=== PATIENT | female | born 1950 | race Caucasian/White ===

== ENCOUNTER 2022-01-12 15:16 | Emergency (ER) | payer MEDICARE, SELFPAY ==
--- NOTE | ~2022-01-12 | XR_ITS ---
EXAMINATION: XR CHEST CLINICAL INFORMATION: Intoxicated. COMPARISON: None TECHNIQUE: 2 views of the chest were obtained. FINDINGS: No significant abnormality is noted involving the heart, lungs, mediastinum, bony thorax or soft tissues. XR/XR chest 2V IMPRESSION: No acute cardiopulmonary process.
[2022-01-12 15:27] VITALS: BP 107/67; BP 158/78; PULSE 103; PULSE 128; RESP 16; TEMP 37.1; O2SAT 96; O2SAT 98; BMI 28.3
--- NOTE | 2022-01-12 15:34 | ECG_ITS ---
Test Reason : Intoxicated Blood Pressure : / mmHG Vent. Rate : 096 BPM Atrial Rate : 096 BPM P-R Int : 164 ms QRS Dur : 086 ms QT Int : 368 ms P-R-T Axes : 054 012 026 degrees QTc Int : 464 ms Normal sinus rhythm Low voltage QRS Cannot rule out Anterior infarct , age undetermined Abnormal ECG No previous ECGs available Referred By: Rajni Taylor Electronically Signed By:DAMIAN LI
[2022-01-12] MEDS: chlordiazePOXIDE HCl 25 MG CAPSULE PO ×2 (15:51→22:58)
--- NOTE | 2022-01-12 16:14 | ED.ALCOHOL ---
HPI - Alcohol General Chief Complaint: ETOH/Substance Use <CHAPARRITA Hair - Last Filed: 01/12/22 17:43> Stated Complaint: detox <CHAPARRITA Hair - Last Filed: 01/12/22 17:43> Time Seen by Provider: 01/12/22 15:19 <CHAPARRITA Hair - Last Filed: 01/12/22 17:43> Source: patient and EMS <CHAPARRITA Hair - Last Filed: 01/12/22 17:43> Mode of arrival: EMS <CHAPARRITA Hair - Last Filed: 01/12/22 17:43> Limitations: no limitations <CHAPARRITA Hair - Last Filed: 01/12/22 17:43> History of Present Illness HPI narrative: 71-year-old female who denies any medical history reports she has not seen a primary care provider in approximately 4 years who is presenting to the ED via EMS with complaints of alcohol dependent requesting detox. 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 Therefore she has been very stressed/anxious and depressed and she has been drinking moderate amount of alcohol she reports approximately 4-8 oz of wine every 4 hours. She reports if she does not do this she starts to become very sweaty and her heart feels like it starts racing and she is getting nervous about this. She reports that she last drank approximately 14:00 prior to arrival. She denies any symptoms at this time including dizziness, change in vision, headaches, nausea/vomiting, jaw pain, chest pain, shortness of breath, dyspnea exertion, orthopnea, palpitations, paresthesias, abdominal pain, diarrhea, constipation, black or bloody stools, rashes, lower extremity edema or calf tenderness, dysuria, hematuria, abnormal vaginal discharge, SI, HI, auditory visualizations thoughts of self-injury, drug use or any other symptoms complaints or concerns at this time. <CHAPARRITA Hair - Last Filed: 01/12/22 17:43> MD complaint: alcohol intoxication and desires rehab <CHAPARRITA Hair Last Filed: 01/12/22 17:43> Last drink: Hours (ago) (14pm police [employer] ) <CHAPARRITA Hair Last Filed: 01/12/22 17:43> Chronic alcohol use: No <CHAPARRITA Hair Last Filed: 01/12/22 17:43> Previous visits for alcohol intoxication: No <CHAPARRITA Hair Last Filed: 01/12/22 17:43> Recent trauma: No <CHAPARRITA Hair Last Filed: 01/12/22 17:43> Associated symptoms: denies other symptoms <CHAPARRITA Hair Last Filed: 01/12/22 17:43> Treatments prior to arrival: none <CHAPARRITA Hair Last Filed: 01/12/22 17:43> Related Data Home Medications: Previous Rx's Medication Instructions Recorded chlordiazepoxide HCl 25 mg capsule 50 mg PO Q4H PRN alcohol 01/12/22 withdrawal 6 doses #6 caps <CHAPARRITA Hair Last Filed: 01/12/22 17:43> Allergies/Adverse Reactions: Allergies Allergy/AdvReac Type Severity Reaction Status Date / Time No Known Allergies Allergy Unverified 02/09/20 18:49 <CHAPARRITA Hair Last Filed: 01/12/22 17:43> Review of Systems Review of Systems: Constitutional : No Fever, No Chills ENT/Mouth : No Ear Pain, No Nasal Congestion, No sore throat Eyes: No Eye Pain, No Swelling, No Redness Cardiovascular : No Chest Pain, No SOB Respiratory : No Cough, No Sputum, No Dyspnea Gastrointestinal : No ingestions, No Nausea, No Vomiting, No Diarrhea, No Hematochezia, No Melena Genitourinary : No Dysuria, No Urinary Frequency, No Hematuria Musculoskeletal : No Myalgias Skin : No Skin Lesions, No rash Neuro : No Weakness, No Numbness, No Paresthesias, No Dizziness, No Headache Psych : + Anxiety, + Depression, No SI, No thoughts of self injury, No HI, No AVH, No Delusions Heme/Lymph: No Lymphadenopathy Endocrine : No Polyuria, No Polydipsia <CHAPARRITA Hair Last Filed: 01/12/22 17:43> Yes all other systems are reviewed and are negative <CHAPARRITA Hair - Last Filed: 01/12/22 17:43> FOR[facility]LY [facility] Past Medical History Attestation statement: The following information was validated with the patient. <CHAPARRITA Hair - Last Filed: 01/12/22 17:43> Source: old records reviewed and nursing notes reviewed <CHAPARRITA Hair - Last Filed: 01/12/22 17:43> Social History Social History: Social History Advance Directives: No Advance Directives Information Provided: No <CHAPARRITA Hair - Last Filed: 01/12/22 17:43> Physical Exam ED Vital Signs: Vital Signs - 24 hr 01/12/22 15:27 01/12/22 20:40 Temperature 98.7 F Pulse Rate 103 H 83 Respiratory Rate 16 18 Blood Pressure 107/67 115/55 L Pulse Oximetry 96 98 Oxygen Delivery Method Room Air BMI result Body Mass Index 28.3 Vital signs reviewed patient's blood pressure 107/67 within normal limits. Pulse 103. Respirations 16. Temperature 98.7 degrees. Oxygen saturation 96% on room air. <CHAPARRITA Hair - Last Filed: 01/12/22 17:43> Vital Signs - 24 hr 01/12/22 15:27 01/12/22 20:40 Temperature 98.7 F Pulse Rate 103 H 83 Respiratory Rate 16 18 Blood Pressure 107/67 115/55 L Pulse Oximetry 96 98 Oxygen Delivery Method Room Air BMI result Body Mass Index 28.3 <CHAPARRITA Tobin - Last Filed: 01/12/22 23:51> Appearance: Alert. Oriented X3. No acute distress. Intoxicated with EtOH on odor of breath. Head: Normal external exam. Normocephalic. Atraumatic. Eyes: PERRLA. EOMI. Conjunctiva and sclera normal. Eyelids normal. ENT: EAC normal. TM's Normal. Pharynx normal. Uvula midline. Moist mucous membranes. No trismus noted. No drooling noted. No muffled voice noted. Neck: Normal inspection. Neck supple. FROM. No adenopathy. Thyroid Normal. No meningeal signs. No neck mass noted. CVS: Normal heart rate and rhythm. Heart sound normal. No murmurs noted. Pulses normal throughout. Respiratory: No respiratory distress. Painless inspiration. Breath sounds normal. No wheezes/rales/rhonchi noted. Chest nontender. No accessory muscle usage noted or decreased air movement noted. Abdomen: Soft and nontender. Bowel sounds normal in all 4 quadrants. No distention noted. No organomegaly noted. No visible injury noted. Back: No CVA tenderness. Full range of motion noted. Skin: Skin warm and dry. Normal skin color. Normal skin turgor. No rashes/lesions/lacerations noted. Extremities: No lower extremity edema. Extremities exhibit normal range of motion. Extremities nontender. Neuro: Oriented X 3. No motor deficit. No sensory deficit. Reflexes normal. CN's II-XII intact bilaterally? Psych: Appearance grossly normal, well-kept, mental status normal, speech and movement normal, speech clear, patient appears very sad and anxious along with depressed. Is cooperative. Normal thought process. Normal thought content. Normal good insight. Judgment good. <CHAPARRITA Hair - Last Filed: 01/12/22 17:43> Course Course Course Narrative: 15:40pm - 71-year-old female who denies any medical history reports she has not seen a primary care provider in approximately 4 years who is presenting to the ED via EMS with complaints of alcohol dependent requesting detox. 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 Therefore she has been very stressed/anxious and depressed and she has been drinking moderate amount of alcohol she reports approximately 4-8 oz of wine every 4 hours. She reports if she does not do this she starts to become very sweaty and her heart feels like it starts racing and she is getting nervous about this. She reports that she last drank approximately 14:00 prior to arrival. Plan: Labs including ETOH level, drugs of abuse screen, COVID swab, EKG, chest x-ray, provide Librium 25 mg every 6-8 hours and re-evaluate. <CHAPARRITA Hair - Last Filed: 01/12/22 17:43> Reevaluation(s) Reevaluation #1: - labs return patient mild anemia with an H&H of 11.7/33.8. Sodium 130. BUN 5. AST 35. Troponin 4.2 therefore will repeat. UA revealed a trace of leukocytes therefore will start on antibiotics for UTI. Patient's ethanol level is at 233. Patient negative for COVID - will provide a L of fluids for the patient's hyponatremia of 130. Will repeat the patient's troponin. Re-evaluate. <CHAPARRITA Hair - Last Filed: 01/12/22 17:43> Time: 16:53 <CHAPARRITA Hair - Last Filed: 01/12/22 17:43> Reevaluation #2: Second troponin negative. Patient spoke with Sita from the care team, she does not want to go to detox. She was given 1st dose of Librium here and would like to go home with Librium. She reports she will not drink alcohol. Her son is at the bedside and will home monitor and support. At this time she is stable for discharge home. <CHAPARRITA Tobin - Last Filed: 01/12/22 23:51> MDM - Alcohol Medical Records Attestation: I reviewed the patient's medical records. <CHAPARRITA Hair - Last Filed: 01/12/22 17:43> Lab Data Attestation: I reviewed the patient's lab results. <CHAPARRITA Hair - Last Filed: 01/12/22 17:43> Result diagrams: : 01/12/22 16:12 01/12/22 16:12 <CHAPARRITA Hair - Last Filed: 01/12/22 17:43> Labs: Lab Results 01/12/22 01/12/22 01/12/22 Range/Units 16:12 16:12 16:12 WBC 5.6 (4.8-10.8) X10*3/uL RBC 3.73 L (4.20-5.50) X10*6/uL Hgb 11.7 L (12.0-16.0) g/dl Hct 33.8 L (37.0-47.0) % MCV 90.6 (80.0-98.0) fL MCH 31.4 (27.0-33.0) pg MCHC 34.6 (31.0-35.0) g/dl RDW 13.9 (11.0-16.0) % Plt Count 196 (160-400) X10*3/uL MPV 8.9 L (9.4-12.3) fL Immature Gran % (Auto) 0.5 H (0.0-0.4) % Neut % (Auto) 56.0 (45-73) % Lymph % (Auto) 35.8 (20-40) % [place] % (Auto) 5.9 (2-11) % Eos % (Auto) 1.1 (0-4) % Baso % (Auto) 0.7 (0-2) % Lymph # (Auto) 2.0 (1.2-4.9) X10*3/uL [place] # (Auto) 0.3 (0.1-1.2) X10*3/uL Eos # (Auto) 0.1 (0.0-0.4) X10*3/uL Baso # (Auto) 0.0 (0.0-0.2) X10*3/uL Abs Immat Gran (auto) 0.03 (0.00-0.03) X10*3/uL Absolute Neuts (auto) 3.1 (2.0-8.3) x10*3/uL Absolute Nucleated RBC 0.000 (0.0-0.012) X10*3/uL Nucleated RBC % (auto) 0.0 (0.0-0.2) /100WBC PT 11.4 (10.0-13.1) SEC INR 1.0 (0.9-1.1) Sodium 130 L (135-145) mmol/L Potassium 4.1 (3.3-5.1) mmol/L Chloride 91 L (96-108) mmol/L Carbon Dioxide 25 (22-29) mmol/L Anion Gap 18 (12-20) BUN 5 L (9-16) mg/dL Creatinine 0.67 (0.5-1.4) mg/dL Estim Creat Clear Calc 73.4 Estimated GFR > 60 Random Glucose 115 (60-115) mg/dL Calcium 8.7 (8.4-10.2) mg/dL Magnesium 1.8 (1.6-2.6) mg/dL Total Bilirubin 0.7 (0.0-1.0) mg/dL AST 35 H (5-31) U/L ALT 21 (0-31) U/L Alkaline Phosphatase 70 (39-117) U/L Troponin I High Sens (<3.5-17.0) ng/L Total Protein 6.3 L (6.5-8.0) g/dL Albumin 3.9 (3.5-5.0) g/dL Urine Color Urine Appearance Urine pH (5.0-8.0) Ur Specific [place] (1.005-1.025) Urine Protein (Neg-Trace) mg/dL Urine Glucose (UA) (Negative) mg/dL Urine Ketones (Negative) mg/dL Urine Blood (Negative) Urine Nitrite (Negative) Ur Leukocyte Esterase (Negative) Urine RBC (0-2) /HPF Urine WBC (0-5) /HPF Ur Squamous Epith Cells (0-2) /HPF Urine Bacteria (None Seen) Hyaline Casts (0-2) /LPF Urine Opiates Screen (Not Detect) Urine Fentanyl Screen (Not Detect) Ur Barbiturates Screen (Not Detect) Ur Phencyclidine Scrn (Not Detect) Ur Amphetamines Screen (Not Detect) U Benzodiazepines Scrn (Not Detect) Urine Cocaine Screen (Not Detect) U Marijuana (THC) Screen (Not Detect) Ethyl Alcohol 223 mg/dL COVID-19 (ARNOL) (Negative) COVID-19 Clin Com 01/12/22 01/12/22 01/12/22 Range/Units 16:12 16:12 16:39 WBC (4.8-10.8) X10*3/uL RBC (4.20-5.50) X10*6/uL Hgb (12.0-16.0) g/dl Hct (37.0-47.0) % MCV (80.0-98.0) fL MCH (27.0-33.0) pg MCHC (31.0-35.0) g/dl RDW (11.0-16.0) % Plt Count (160-400) X10*3/uL MPV (9.4-12.3) fL Immature Gran % (Auto) (0.0-0.4) % Neut % (Auto) (45-73) % Lymph % (Auto) (20-40) % [place] % (Auto) (2-11) % Eos % (Auto) (0-4) % Baso % (Auto) (0-2) % Lymph # (Auto) (1.2-4.9) X10*3/uL [place] # (Auto) (0.1-1.2) X10*3/uL Eos # (Auto) (0.0-0.4) X10*3/uL Baso # (Auto) (0.0-0.2) X10*3/uL Abs Immat Gran (auto) (0.00-0.03) X10*3/uL Absolute Neuts (auto) (2.0-8.3) x10*3/uL Absolute Nucleated RBC (0.0-0.012) X10*3/uL Nucleated RBC % (auto) (0.0-0.2) /100WBC PT (10.0-13.1) SEC INR (0.9-1.1) Sodium (135-145) mmol/L Potassium (3.3-5.1) mmol/L Chloride (96-108) mmol/L Carbon Dioxide (22-29) mmol/L Anion Gap (12-20) BUN (9-16) mg/dL Creatinine (0.5-1.4) mg/dL Estim Creat Clear Calc Estimated GFR Random Glucose (60-115) mg/dL Calcium (8.4-10.2) mg/dL Magnesium (1.6-2.6) mg/dL Total Bilirubin (0.0-1.0) mg/dL AST (5-31) U/L ALT (0-31) U/L Alkaline Phosphatase (39-117) U/L Troponin I High Sens 4.2 (<3.5-17.0) ng/L Total Protein (6.5-8.0) g/dL Albumin (3.5-5.0) g/dL Urine Color Yellow Urine Appearance Clear Urine pH 7.5 (5.0-8.0) Ur Specific [place] 1.010 (1.005-1.025) Urine Protein Negative (Neg-Trace) mg/dL Urine Glucose (UA) Negative (Negative) mg/dL Urine Ketones Negative (Negative) mg/dL Urine Blood Negative (Negative) Urine Nitrite Negative (Negative) Ur Leukocyte Esterase Trace H (Negative) Urine RBC 0-2 (0-2) /HPF Urine WBC 0-5 (0-5) /HPF Ur Squamous Epith Cells 0-2 (0-2) /HPF Urine Bacteria None Seen (None Seen) Hyaline Casts 0-2 (0-2) /LPF Urine Opiates Screen (Not Detect) Urine Fentanyl Screen (Not Detect) Ur Barbiturates Screen (Not Detect) Ur Phencyclidine Scrn (Not Detect) Ur Amphetamines Screen (Not Detect) U Benzodiazepines Scrn (Not Detect) Urine Cocaine Screen (Not Detect) U Marijuana (THC) Screen (Not Detect) Ethyl Alcohol mg/dL COVID-19 (ARNOL) Negative (Negative) COVID-19 Clin Com See Note 01/12/22 01/12/22 Range/Units 16:39 20:57 WBC (4.8-10.8) X10*3/uL RBC (4.20-5.50) X10*6/uL Hgb (12.0-16.0) g/dl Hct (37.0-47.0) % MCV (80.0-98.0) fL MCH (27.0-33.0) pg MCHC (31.0-35.0) g/dl RDW (11.0-16.0) % Plt Count (160-400) X10*3/uL MPV (9.4-12.3) fL Immature Gran % (Auto) (0.0-0.4) % Neut % (Auto) (45-73) % Lymph % (Auto) (20-40) % [place] % (Auto) (2-11) % Eos % (Auto) (0-4) % Baso % (Auto) (0-2) % Lymph # (Auto) (1.2-4.9) X10*3/uL [place] # (Auto) (0.1-1.2) X10*3/uL Eos # (Auto) (0.0-0.4) X10*3/uL Baso # (Auto) (0.0-0.2) X10*3/uL Abs Immat Gran (auto) (0.00-0.03) X10*3/uL Absolute Neuts (auto) (2.0-8.3) x10*3/uL Absolute Nucleated RBC (0.0-0.012) X10*3/uL Nucleated RBC % (auto) (0.0-0.2) /100WBC PT (10.0-13.1) SEC INR (0.9-1.1) Sodium (135-145) mmol/L Potassium (3.3-5.1) mmol/L Chloride (96-108) mmol/L Carbon Dioxide (22-29) mmol/L Anion Gap (12-20) BUN (9-16) mg/dL Creatinine (0.5-1.4) mg/dL Estim Creat Clear Calc Estimated GFR Random Glucose (60-115) mg/dL Calcium (8.4-10.2) mg/dL Magnesium (1.6-2.6) mg/dL Total Bilirubin (0.0-1.0) mg/dL AST (5-31) U/L ALT (0-31) U/L Alkaline Phosphatase (39-117) U/L Troponin I High Sens < 3.5 (<3.5-17.0) ng/L Total Protein (6.5-8.0) g/dL Albumin (3.5-5.0) g/dL Urine Color Urine Appearance Urine pH (5.0-8.0) Ur Specific [place] (1.005-1.025) Urine Protein (Neg-Trace) mg/dL Urine Glucose (UA) (Negative) mg/dL Urine Ketones (Negative) mg/dL Urine Blood (Negative) Urine Nitrite (Negative) Ur Leukocyte Esterase (Negative) Urine RBC (0-2) /HPF Urine WBC (0-5) /HPF Ur Squamous Epith Cells (0-2) /HPF Urine Bacteria (None Seen) Hyaline Casts (0-2) /LPF Urine Opiates Screen Not Detected (Not Detect) Urine Fentanyl Screen Not Detected (Not Detect) Ur Barbiturates Screen Not Detected (Not Detect) Ur Phencyclidine Scrn Not Detected (Not Detect) Ur Amphetamines Screen Not Detected (Not Detect) U Benzodiazepines Scrn Not Detected (Not Detect) Urine Cocaine Screen Not Detected (Not Detect) U Marijuana (THC) Screen POSITIVE H (Not Detect) Ethyl Alcohol mg/dL COVID-19 (ARNOL) (Negative) COVID-19 Clin Com <CHAPARRITA Hair - Last Filed: 01/12/22 17:43> Lab Results 01/12/22 01/12/22 01/12/22 Range/Units 16:12 16:12 16:12 WBC 5.6 (4.8-10.8) X10*3/uL RBC 3.73 L (4.20-5.50) X10*6/uL Hgb 11.7 L (12.0-16.0) g/dl Hct 33.8 L (37.0-47.0) % MCV 90.6 (80.0-98.0) fL MCH 31.4 (27.0-33.0) pg MCHC 34.6 (31.0-35.0) g/dl RDW 13.9 (11.0-16.0) % Plt Count 196 (160-400) X10*3/uL MPV 8.9 L (9.4-12.3) fL Immature Gran % (Auto) 0.5 H (0.0-0.4) % Neut % (Auto) 56.0 (45-73) % Lymph % (Auto) 35.8 (20-40) % [place] % (Auto) 5.9 (2-11) % Eos % (Auto) 1.1 (0-4) % Baso % (Auto) 0.7 (0-2) % Lymph # (Auto) 2.0 (1.2-4.9) X10*3/uL [place] # (Auto) 0.3 (0.1-1.2) X10*3/uL Eos # (Auto) 0.1 (0.0-0.4) X10*3/uL Baso # (Auto) 0.0 (0.0-0.2) X10*3/uL Abs Immat Gran (auto) 0.03 (0.00-0.03) X10*3/uL Absolute Neuts (auto) 3.1 (2.0-8.3) x10*3/uL Absolute Nucleated RBC 0.000 (0.0-0.012) X10*3/uL Nucleated RBC % (auto) 0.0 (0.0-0.2) /100WBC PT 11.4 (10.0-13.1) SEC INR 1.0 (0.9-1.1) Sodium 130 L (135-145) mmol/L Potassium 4.1 (3.3-5.1) mmol/L Chloride 91 L (96-108) mmol/L Carbon Dioxide 25 (22-29) mmol/L Anion Gap 18 (12-20) BUN 5 L (9-16) mg/dL Creatinine 0.67 (0.5-1.4) mg/dL Estim Creat Clear Calc 73.4 Estimated GFR > 60 Random Glucose 115 (60-115) mg/dL Calcium 8.7 (8.4-10.2) mg/dL Magnesium 1.8 (1.6-2.6) mg/dL Total Bilirubin 0.7 (0.0-1.0) mg/dL AST 35 H (5-31) U/L ALT 21 (0-31) U/L Alkaline Phosphatase 70 (39-117) U/L Troponin I High Sens (<3.5-17.0) ng/L Total Protein 6.3 L (6.5-8.0) g/dL Albumin 3.9 (3.5-5.0) g/dL Urine Color Urine Appearance Urine pH (5.0-8.0) Ur Specific [place] (1.005-1.025) Urine Protein (Neg-Trace) mg/dL Urine Glucose (UA) (Negative) mg/dL Urine Ketones (Negative) mg/dL Urine Blood (Negative) Urine Nitrite (Negative) Ur Leukocyte Esterase (Negative) Urine RBC (0-2) /HPF Urine WBC (0-5) /HPF Ur Squamous Epith Cells (0-2) /HPF Urine Bacteria (None Seen) Hyaline Casts (0-2) /LPF Urine Opiates Screen (Not Detect) Urine Fentanyl Screen (Not Detect) Ur Barbiturates Screen (Not Detect) Ur Phencyclidine Scrn (Not Detect) Ur Amphetamines Screen (Not Detect) U Benzodiazepines Scrn (Not Detect) Urine Cocaine Screen (Not Detect) U Marijuana (THC) Screen (Not Detect) Ethyl Alcohol 223 mg/dL COVID-19 (ARNOL) (Negative) COVID-19 Clin Com 01/12/22 01/12/22 01/12/22 Range/Units 16:12 16:12 16:39 WBC (4.8-10.8) X10*3/uL RBC (4.20-5.50) X10*6/uL Hgb (12.0-16.0) g/dl Hct (37.0-47.0) % MCV (80.0-98.0) fL MCH (27.0-33.0) pg MCHC (31.0-35.0) g/dl RDW (11.0-16.0) % Plt Count (160-400) X10*3/uL MPV (9.4-12.3) fL Immature Gran % (Auto) (0.0-0.4) % Neut % (Auto) (45-73) % Lymph % (Auto) (20-40) % [place] % (Auto) (2-11) % Eos % (Auto) (0-4) % Baso % (Auto) (0-2) % Lymph # (Auto) (1.2-4.9) X10*3/uL [place] # (Auto) (0.1-1.2) X10*3/uL Eos # (Auto) (0.0-0.4) X10*3/uL Baso # (Auto) (0.0-0.2) X10*3/uL Abs Immat Gran (auto) (0.00-0.03) X10*3/uL Absolute Neuts (auto) (2.0-8.3) x10*3/uL Absolute Nucleated RBC (0.0-0.012) X10*3/uL Nucleated RBC % (auto) (0.0-0.2) /100WBC PT (10.0-13.1) SEC INR (0.9-1.1) Sodium (135-145) mmol/L Potassium (3.3-5.1) mmol/L Chloride (96-108) mmol/L Carbon Dioxide (22-29) mmol/L Anion Gap (12-20) BUN (9-16) mg/dL Creatinine (0.5-1.4) mg/dL Estim Creat Clear Calc Estimated GFR Random Glucose (60-115) mg/dL Calcium (8.4-10.2) mg/dL Magnesium (1.6-2.6) mg/dL Total Bilirubin (0.0-1.0) mg/dL AST (5-31) U/L ALT (0-31) U/L Alkaline Phosphatase (39-117) U/L Troponin I High Sens 4.2 (<3.5-17.0) ng/L Total Protein (6.5-8.0) g/dL Albumin (3.5-5.0) g/dL Urine Color Yellow Urine Appearance Clear Urine pH 7.5 (5.0-8.0) Ur Specific [place] 1.010 (1.005-1.025) Urine Protein Negative (Neg-Trace) mg/dL Urine Glucose (UA) Negative (Negative) mg/dL Urine Ketones Negative (Negative) mg/dL Urine Blood Negative (Negative) Urine Nitrite Negative (Negative) Ur Leukocyte Esterase Trace H (Negative) Urine RBC 0-2 (0-2) /HPF Urine WBC 0-5 (0-5) /HPF Ur Squamous Epith Cells 0-2 (0-2) /HPF Urine Bacteria None Seen (None Seen) Hyaline Casts 0-2 (0-2) /LPF Urine Opiates Screen (Not Detect) Urine Fentanyl Screen (Not Detect) Ur Barbiturates Screen (Not Detect) Ur Phencyclidine Scrn (Not Detect) Ur Amphetamines Screen (Not Detect) U Benzodiazepines Scrn (Not Detect) Urine Cocaine Screen (Not Detect) U Marijuana (THC) Screen (Not Detect) Ethyl Alcohol mg/dL COVID-19 (ARNOL) Negative (Negative) COVID-19 Clin Com See Note 01/12/22 01/12/22 Range/Units 16:39 20:57 WBC (4.8-10.8) X10*3/uL RBC (4.20-5.50) X10*6/uL Hgb (12.0-16.0) g/dl Hct (37.0-47.0) % MCV (80.0-98.0) fL MCH (27.0-33.0) pg MCHC (31.0-35.0) g/dl RDW (11.0-16.0) % Plt Count (160-400) X10*3/uL MPV (9.4-12.3) fL Immature Gran % (Auto) (0.0-0.4) % Neut % (Auto) (45-73) % Lymph % (Auto) (20-40) % [place] % (Auto) (2-11) % Eos % (Auto) (0-4) % Baso % (Auto) (0-2) % Lymph # (Auto) (1.2-4.9) X10*3/uL [place] # (Auto) (0.1-1.2) X10*3/uL Eos # (Auto) (0.0-0.4) X10*3/uL Baso # (Auto) (0.0-0.2) X10*3/uL Abs Immat Gran (auto) (0.00-0.03) X10*3/uL Absolute Neuts (auto) (2.0-8.3) x10*3/uL Absolute Nucleated RBC (0.0-0.012) X10*3/uL Nucleated RBC % (auto) (0.0-0.2) /100WBC PT (10.0-13.1) SEC INR (0.9-1.1) Sodium (135-145) mmol/L Potassium (3.3-5.1) mmol/L Chloride (96-108) mmol/L Carbon Dioxide (22-29) mmol/L Anion Gap (12-20) BUN (9-16) mg/dL Creatinine (0.5-1.4) mg/dL Estim Creat Clear Calc Estimated GFR Random Glucose (60-115) mg/dL Calcium (8.4-10.2) mg/dL Magnesium (1.6-2.6) mg/dL Total Bilirubin (0.0-1.0) mg/dL AST (5-31) U/L ALT (0-31) U/L Alkaline Phosphatase (39-117) U/L Troponin I High Sens < 3.5 (<3.5-17.0) ng/L Total Protein (6.5-8.0) g/dL Albumin (3.5-5.0) g/dL Urine Color Urine Appearance Urine pH (5.0-8.0) Ur Specific [place] (1.005-1.025) Urine Protein (Neg-Trace) mg/dL Urine Glucose (UA) (Negative) mg/dL Urine Ketones (Negative) mg/dL Urine Blood (Negative) Urine Nitrite (Negative) Ur Leukocyte Esterase (Negative) Urine RBC (0-2) /HPF Urine WBC (0-5) /HPF Ur Squamous Epith Cells (0-2) /HPF Urine Bacteria (None Seen) Hyaline Casts (0-2) /LPF Urine Opiates Screen Not Detected (Not Detect) Urine Fentanyl Screen Not Detected (Not Detect) Ur Barbiturates Screen Not Detected (Not Detect) Ur Phencyclidine Scrn Not Detected (Not Detect) Ur Amphetamines Screen Not Detected (Not Detect) U Benzodiazepines Scrn Not Detected (Not Detect) Urine Cocaine Screen Not Detected (Not Detect) U Marijuana (THC) Screen POSITIVE H (Not Detect) Ethyl Alcohol mg/dL COVID-19 (ARNOL) (Negative) COVID-19 Clin Com <CHAPARRITA Tobin - Last Filed: 01/12/22 23:51> Imaging Data Chest x-ray: Attestation: I personally reviewed and interpreted this imaging study as follows: <CHAPARRITA Hair Last Filed: 01/12/22 17:43> Radiologist's impression: FINDINGS: No significant abnormality is noted involving the heart, lungs, mediastinum, bony thorax or soft tissues. XR/XR chest 2V IMPRESSION: No acute cardiopulmonary process. <CHAPARRITA Hair Last Filed: 01/12/22 17:43> Discharge Plan Discharge Clinical Impression: Alcoholic intoxication, UTI (urinary tract infection), Acute hyponatremia, Marijuana abuse <CHAPARRITA Hair Last Filed: 01/12/22 17:43> Patient Disposition: Home, Self-Care <CHAPARRITA Hair Last Filed: 01/12/22 17:43> Instructions: Alcohol Dependence (ED) <CHAPARRITA Hair Last Filed: 01/12/22 17:43> Additional Instructions: Do not drink alcohol. Recommend detox. Take the prescribed medications as needed for alcohol withdrawal symptoms. If you develop new or worsening symptoms call 911 or come back to the ER for further evaluation. <CHAPARRITA Hair Last Filed: 01/12/22 17:43> Prescriptions: New chlordiazepoxide HCl 25 mg capsule 50 mg PO Q4H PRN (Reason: alcohol withdrawal) Qty: 6 0RF Rx Instructions: until symptoms controlled <CHAPARRITA Hair Last Filed: 01/12/22 17:43>
[2022-01-12 16:21] LABS: MANUAL DIFF FLAG NO
[2022-01-12 16:24] LABS: Basophils Percent Auto 0.7 % (0-2); Eosinophils Absolute Auto 0.1 X10*3/uL (0.0-0.4); Eosinophils Percent Auto 1.1 % (0-4); Hematocrit 33.8 % (37.0-47.0); Hemoglobin 11.7 g/dl (12.0-16.0); Imm Gran Abs Auto 0.03 X10*3/uL (0.00-0.03); Imm Gran Pct Auto 0.5 % (0.0-0.4); Lymphocytes Percent Auto 35.8 % (20-40); Mean Corpuscular HGB Conc 34.6 g/dl (31.0-35.0); Mean Corpuscular Hemoglobin 31.4 pg (27.0-33.0); Mean Corpuscular Volume 90.6 fL (80.0-98.0); Mean Platelet Volume 8.9 fL (9.4-12.3); Monocytes Absolute Auto 0.3 X10*3/uL (0.1-1.2); Monocytes Percent Auto 5.9 % (2-11); Neutrophils Absolute Auto 3.1 x10*3/uL (2.0-8.3); Platelet Count 196 X10*3/uL (160-400); Red Blood Count 3.73 X10*6/uL (4.20-5.50); Red Cell Distribution Width 13.9 % (11.0-16.0); White Blood Count 5.6 X10*3/uL (4.8-10.8)
[2022-01-12 16:31] LABS: Prothrombin Time 11.4 SEC (10.0-13.1)
[2022-01-12 16:39] LABS: COVID-19 Test Negative (Negative)
[2022-01-12 16:43] LABS: Alanine Aminotransferase 21 U/L (0-31); Albumin Level 3.9 g/dL (3.5-5.0); Alkaline Phosphatase 70 U/L (39-117); Anion Gap 18 (12-20); Aspartate Amino Transferase 35 U/L (5-31); Bilirubin Total 0.7 mg/dL (0.0-1.0); Blood Urea Nitrogen 5 mg/dL (9-16); Calcium 8.7 mg/dL (8.4-10.2); Carbon Dioxide 25 mmol/L (22-29); Chloride 91 mmol/L (96-108); Creatinine Clr Calc Pharmacy 73.4; Estimated Glomerular Filt Rate > 60; Ethanol 223 mg/dL; Glucose Random 115 mg/dL (60-115); Magnesium 1.8 mg/dL (1.6-2.6); Potassium 4.1 mmol/L (3.3-5.1); Sodium 130 mmol/L (135-145); Total Protein 6.3 g/dL (6.5-8.0)
[2022-01-12 16:46] LABS: Troponin-I High Sensitivity 4.2 ng/L (<3.5-17.0)
[2022-01-12 16:48] LABS: Appearance Urine Clear; Color Urine Yellow; Glucose Urine UA Negative (Negative); Leukocyte Esterase Urine Trace (Negative); Nitrite Urine Negative (Negative); PH 7.5 (5.0-8.0); Urine Blood Negative (Negative); Urine Ketones Negative (Negative); Urine Protein Negative (Neg-Trace)
[2022-01-12 16:50] LABS: Bacteria Urine None Seen (None Seen); Hyaline Casts Urine 0-2 /LPF (0-2); RBC Urine 0-2 /HPF (0-2); Squamous Epithelial Cell Urine 0-2 /HPF (0-2); WBC Urine 0-5 /HPF (0-5)
[2022-01-12 17:00] LABS: Amphetamine Screen Urine Not Detected (Not Detect); Barbiturates, Urine Not Detected (Not Detect); Benzodiazepines Screen Urine Not Detected (Not Detect); Cannabinoid Screen Urine POSITIVE (Not Detect); Cocaine Screen Urine Not Detected (Not Detect); Fentanyl, urine Not Detected (Not Detect); Opiate Screen Urine Not Detected (Not Detect); Phencyclidine Screen Urine Not Detected (Not Detect)
[2022-01-12] MEDS: 0.9 % Sodium Chloride 1,000 ML 999 ML IVCONT (17:20)
--- NOTE | 2022-01-12 19:30 | PC.NURSE ---
THIS NURSE HAS NOW ASSUMED CARE OF PT
[2022-01-12 20:40] VITALS: BP 115/55; PULSE 83; RESP 18; O2SAT 98
[2022-01-12 21:23] LABS: Troponin-I High Sensitivity < 3.5 ng/L (<3.5-17.0)
--- NOTE | 2022-01-12 21:31 | MHC.CARE ---
CARE team consult received for a 71 year old female who arrived to the ED seeking detox. Her ethanol level was 223 shortly after arrival and she was not seen until her level was estimated to be around 100. Pt shared with this typewriter assembler that her 5 weeks ago and that she has been struggling with her alcohol use since his . She reported that she drinks 1-2 bottles of wine daily. She reported one episode of alcohol withdrawal that she can recall, within the past few months, and she experienced symptoms such as chills, anxiety, chest discomfort, and tremors. She denied history of DTs or seizures. Per chart review- the pt has a history of suicidal ideation s/p heavy alcohol use but has had no visits to this hospital since 2013. She denied SI/HI/AVH and did not present with any other acute symptoms. Pt is help seeking but requesting to discharge home and does not wish to go to detox at this time. The pt's son is at bedside and able to transport her home. She was given information for [facility] crisis, [facility] and [facility], list of other IOPs in the area, and information for [facility] programs. She reported that she has a therapist that she sees at [facility] and was recommended to contact her therapist and her PCP in the morning for ongoing care and management of alcohol use.
[2022-01-12] MEDS: LORazepam 1 MG TABLET PO (22:59)
== END 2022-01-12 23:58 | disposition home or self-care (01) ==
PROVIDERS: Physician Assistant Medical; Emergency Provider Emergency Medicine
DX: F10.129 Alcohol abuse with intoxication, unspecified (principal); Y90.7 Blood alcohol level of 200-239 mg/100 ml; N39.0 Urinary tract infection, site not specified; R07.89 Other chest pain; E87.1 Hypo-osmolality and hyponatremia; F12.19 Cannabis abuse with unspecified cannabis-induced disorder; Z20.822 Contact with and (suspected) exposure to COVID-19; Z79.899 Other long term (current) drug therapy
CPT/HCPCS: 36415; 71046; 80053; 80307; 81001; 82077; 83735; 84484; 85025; 85610; 87635; 93005; 99285